=== PATIENT | male | born 1985 | race Asian ===

== ENCOUNTER 2018-12-14 09:29 | Outpatient (CLI) | payer OTHER ==
[2018-12-14] MEDS ORDERED: BUFFERED LIDOCAINE 10 ML SYRINGE ONE (09:38)
[2018-12-14] MEDS ORDERED: IOTHALAMATE MEGLUMINE 50 ML VIAL ONE (09:38)
[2018-12-14] MEDS ORDERED: GADOPENTETATE DIMEGLUMINE 5 ML VIAL IVP ONE ×2 (09:39→10:46)
[2018-12-14] MEDS ORDERED: BUFFERED LIDOCAINE 10 ML SYRINGE IU ONE (10:46)
[2018-12-14] MEDS ORDERED: IOTHALAMATE MEGLUMINE 50 ML VIAL IVP ONE (10:46)
--- NOTE | 2018-12-14 15:35 | XRAY Report ---
Reason: PAIN IN RIGHT SHOULDER Procedure Date: 12/14/2018 Accession Number: [id number] / [id number] Procedure: [place] - Arthrogram Needle Placement CPT Code: FULL RESULT: EXAM: RIGHT SHOULDER ARTHROGRAPHIC INJECTION WITH FLUOROSCOPIC GUIDANCE EXAM DATE: 12/14/2018 10:41 AM. CLINICAL HISTORY: Pain in right shoulder. COMPARISON: Upper extremity right w/contrast 12/14/2018 12:55 PM. TECHNIQUE: The risks, benefits, and alternatives of the procedure were discussed with the patient. All questions were answered. Written and verbal consent were obtained. The glenohumeral joint was marked under fluoroscopy and prepped and draped in a sterile manner. Local anesthesia was performed with 1% lidocaine. A 22-gauge needle was then inserted into the glenohumeral joint. 10 mL of a solution containing 25% 1% lidocaine, 25% iodinated contrast, and a 1:200 dilution of gadolinium contrast in sterile saline was then injected. The needle was removed without immediate complication. Other: None. Fluoroscopy Time: 0.2 minutes. Number of Images: 4. FINDINGS: Bones and joints: No fracture or subluxation. Injection: Fluoroscopic images demonstrate needle placement and contrast in the glenohumeral joint. No contrast extravasation outside of the glenohumeral joint. IMPRESSION: Successful fluoroscopically-guided arthrographic injection of the shoulder. [facility]
--- NOTE | 2018-12-14 19:00 | CT Report ---
Reason: RT SHOULDER PAIN Procedure Date: 12/14/2018 Accession Number: [id number] / [id number] Procedure: CT - Upper Extremity Right W/ CPT Code: FULL RESULT: EXAM: RIGHT SHOULDER CT ARTHROGRAM WITH CONTRAST EXAM DATE: 12/14/2018 12:58 PM. CLINICAL HISTORY: RT SHOULDER PAIN. COMPARISON: UPPER EXTREMITY RIGHT W/ 12/14/2018 12:54 PM. TECHNIQUE: Thin-section axial images were acquired of the shoulder after an arthrographic injection dictated under a separate exam. Post-processing: Oblique coronal and sagittal reformats. Other: None. In accordance with CT protocol optimization, one or more of the following dose reduction techniques were utilized for this exam: automated exposure control, adjustment of mA and/or KV based on patient size, or use of iterative reconstructive technique. FINDINGS: Bones: No fracture or bone lesion. Acromioclavicular Region: The patient has a type II acromion. The acromioclavicular joint is normal. There is no contrast in the subacromial/subdeltoid bursa. Glenohumeral Joint: Normal. No loose bodies. The articular cartilage surfaces are normal. Musculature: There are no joint-sided rotator cuff tears. No fatty atrophy. Other: The visualized lungs are unremarkable. No lymphadenopathy in the visualized axilla. IMPRESSION: Normal shoulder CT arthrogram. [facility] MUSCULOSKELETAL RADIOLOGY SECTION
== END 2018-12-14 09:30 | disposition home or self-care (01) ==
LOC: DI 09:29
PROVIDERS: ATTEND General Practice
DX: M25.511 Pain in right shoulder (principal)
CPT/HCPCS: 23350; 73201; 77002; Q9961

== ENCOUNTER 2018-12-14 11:59 | Outpatient (CLI) | payer OTHER | END 2018-12-14 12:00 | disposition home or self-care (01) | LOC: DI 11:59 | PROVIDERS: ATTEND General Practice | DX: Z53.9 Procedure and treatment not carried out, unspecified reason (principal) ==